=== PATIENT | female | born 1935 | race Caucasian/White ===

== ENCOUNTER 2020-06-27 08:05 | Inpatient (IN) | payer MEDICARE, OTHER ==
[~2020-06-27] VITALS: Ht 162.6 cm; Wt 60.3 kg
[2020-06-27] MEDS ORDERED: ASPIRIN CHEWABLE 81 MG TABLET. PO ONE (08:15)
--- NOTE | 2020-06-27 08:18 | PHYS DOC ---
Past History Past Medical History: Hypertension, Hypothyroid Past Surgical History: Appendectomy, Tonsillectomy Drug Use: None General Adult EDM: Chief Complaint: CHEST PAIN HPI: HPI: Patient is a 84-year-old female who presents with a chief complaint of chest pain. Patient went on a 1 hour walk outside in the cold and then after that began having substernal chest pain described as a fullness and heaviness that is nonradiating and currently gone. Pain lasted 10 minutes. Patient had no associated symptoms such as shortness of breath, nausea, vomiting, dizziness or diaphoresis. Patient denies any factors that make the symptoms better or worse. Patient feels like symptoms may have been brought on by breathing in cold air. Patient denies any recent illnesses such as fever, chills, cough, vomiting, diarrhea or URI symptoms. Review of Systems: Review of Systems: Constitutional: Denies fever or chills Eyes: Denies change in visual acuity HENT: Denies nasal congestion or sore throat Respiratory: Denies cough or shortness of breath Cardiovascular: Complains of chest pain but no edema GI: Denies abdominal pain, nausea, vomiting, bloody stools or diarrhea : Denies dysuria Musculoskeletal: Denies back pain or joint pain Integument: Denies rash Neurologic: Denies headache, focal weakness or sensory changes Endocrine: Denies polyuria or polydipsia Lymphatic: Denies swollen glands Psychiatric: Denies depression or anxiety Current Medications: Current Meds: Current Medications Aspirin (Aspirin Chewable) 324 mg 1X ONCE PO Last administered on 06/27/20at 08:23; Start 06/27/20 at 08:15; Stop 06/27/20 at 08:17; Status DC Allergies: Allergies: Allergies Coded Allergies Type Severity Reaction Last Updated Verified No Known Drug Allergies 06/27/20 No Physical Exam: PE: Constitutional: Well developed, well nourished, no acute distress, non-toxic appearance. [] HENT: Normocephalic, atraumatic, bilateral external ears normal, no trismus nose normal. [] Eyes: PERRLA, EOMI, conjunctiva normal, no discharge. [] Neck: Normal range of motion, no tenderness, supple, no stridor. [] Cardiovascular:Heart rate regular rhythm, peripheral pulses intact cap refill is brisk Lungs & Thorax: Bilateral breath sounds clear, no respiratory distress Abdomen: soft, no tenderness, no masses, no pulsatile masses. [] Skin: Warm, dry, no erythema, no rash. [] Back: No tenderness, no CVA tenderness. [] Extremities: No tenderness, no cyanosis, no clubbing, ROM intact, no edema. [] Neurologic: Alert and oriented X 3, normal motor function, normal sensory f unction, no focal deficits noted. [] Psychologic: Affect normal, judgement normal, mood normal. [] Current Patient Data: Labs: Laboratory Tests Test 06/27/20 09:00 White Blood Count 4.9 x10^3/uL Red Blood Count 4.52 x10^6/uL Hemoglobin 13.9 g/dL Hematocrit 40.7 % Mean Corpuscular Volume 90 fL Mean Corpuscular Hemoglobin 31 pg Mean Corpuscular Hemoglobin Concent 34 g/dL Red Cell Distribution Width 13.0 % Platelet Count 189 x10^3/uL Neutrophils (%) (Auto) 69 % Lymphocytes (%) (Auto) 18 % Monocytes (%) (Auto) 11 % Eosinophils (%) (Auto) 2 % Basophils (%) (Auto) 1 % Neutrophils # (Auto) 3.4 x10^3uL Lymphocytes # (Auto) 0.9 x10^3/uL Monocytes # (Auto) 0.5 x10^3/uL Eosinophils # (Auto) 0.1 x10^3/uL Basophils # (Auto) 0.0 x10^3/uL Sodium Level 128 mmol/L Potassium Level 2.6 mmol/L Chloride Level 87 mmol/L Carbon Dioxide Level 35 mmol/L Anion Gap 6 Blood Urea Nitrogen 14 mg/dL Creatinine 0.5 mg/dL Estimated GFR (Cockcroft-Gault) 118.1 BUN/Creatinine Ratio 28 Glucose Level 95 mg/dL Calcium Level 9.1 mg/dL Magnesium Level 1.9 mg/dL Total Bilirubin 0.6 mg/dL Aspartate Amino Transf (AST/SGOT) 34 U/L Alanine Aminotransferase (ALT/SGPT) 36 U/L Alkaline Phosphatase 103 U/L Troponin I Quantitative < 0.017 ng/mL Total Protein 7.6 g/dL Albumin 4.0 g/dL Albumin/Globulin Ratio 1.1 Lipase 74 U/L Current Medications Medications (Trade) Dose Ordered Sig/Nevaeh Route PRN Reason Start Time Stop Time Status Last Admin Dose Admin Aspirin (Aspirin Chewable) 324 mg 1X ONCE PO 06/27/20 08:15 06/27/20 08:17 DC 06/27/20 08:23 Potassium Chloride (Klor-Con) 40 meq 1X ONCE PO 06/27/20 10:00 06/27/20 10:01 DC 06/27/20 10:09 Ondansetron HCl (Zofran) 4 mg PRN Q4HRS PRN IVP NAUSEA/VOMITING 06/27/20 10:30 06/28/20 10:29 UNV Vital Signs: Vital Signs Date Time Temp Pulse Resp B/P (MAP) Pulse Ox O2 Delivery O2 Flow Rate FiO2 06/27/20 08:23 67 15 210/103 (138) 99 Room Air 06/27/20 08:10 97.4 EKG: EKG: [] EKG interpreted by me normal sinus rhythm with rate of 70 normal axis normal intervals, nonspecific ST changes Radiology/Procedures: Radiology/Procedures: [][place] [address] IMAGING REPORT Signed PATIENT: MARCO WADE ACCOUNT: [id number] : 1935 LOCATION: ER AGE: 84 SEX: F EXAM STATUS: REG ER ORD. PHYSICIAN: RUPESH KAN MD REASON: CHEST PAIN PROCEDURE: PORTABLE CHEST 1V EXAM: PORTABLE CHEST 1V 06/27/2020 8:15 AM CLINICAL INDICATION: Chest pain COMPARISON: CT chest 05/25/2009 TECHNIQUE: AP upright view of the chest FINDINGS: The heart and mediastinum are normal. Lungs are well-expanded and clear. No consolidation, pleural effusion, or pneumothorax. Pulmonary vascularity is normal. The thoracic skeleton is intact. IMPRESSION: No acute cardiopulmonary abnormality. Electronically signed by: Zoila Clay MD (06/27/2020 9:11 AM) [id number] DICTATED AND SIGNED BY: ZOILA CLAY MD DATE: 06/27/20 0911 CC: RUPESH KAN MD; CUONG LUGO MD ~MTH0 0 Heart Score: HEART Score for Chest Pain: HEART Score for Chest Pain Response (Comments) Value History Moderately Suspicious 1 ECG Nonspecific Repolarizatio 1 Age > 65 2 Risk Factors 1 or 2 Risk Factors 1 Troponin < Normal Limit 0 Total 5 Risk Factors: Risk Factors: DM, Current or recent (<one month) smoker, HTN, HLP, family history of CAD, obesity. Risk Scores: Score 0 - 3: 2.5% MACE over next 6 weeks - Discharge Home Score 4 - 6: 20.3% MACE over next 6 weeks - Admit for Clinical Observation Score 7 - 10: 72.7% MACE over next 6 weeks - Early Invasive Strategies Course & Med Decision Making: Course & Med Decision Making Pertinent Labs and Imaging studies reviewed. (See chart for details) [] 84-year-old female presents with chest pain. Patient also has a significant high blood pressure but she took her Procardia prior to arrival. On reassessment her blood pressures in the 150s. Patient has significant hyponatremia and hypokalemia. Patient has a heart score of 5 will need to be admitted for a longer rule out. Patient also has secondary electrolyte disturbances therefore should need to be a full admission to the hospital to monitor and correct electrolytes. Yaima Disclaimer: Yaima Disclaimer: This electronic medical record was generated, in whole or in part, using a voice recognition dictation system. Departure Departure: Impression: Primary Impression: Substernal chest pain Additional Impressions: Accelerated hypertension Hyponatremia Hypokalemia Disposition: ADMITTED INPT THIS HOSP Admitting Physician: Cuong Lugo Condition: STABLE Referrals: CUONG LUGO MD (PCP) RUPESH KAN MD Jun 27, 2020 08:18
--- NOTE | 2020-06-27 09:14 | RAD ---
EXAM: PORTABLE CHEST 1V 06/27/2020 8:15 AM CLINICAL INDICATION: Chest pain COMPARISON: CT chest 05/25/2009 TECHNIQUE: AP upright view of the chest FINDINGS: The heart and mediastinum are normal. Lungs are well-expanded and clear. No consolidation, pleural effusion, or pneumothorax. Pulmonary vascularity is normal. The thoracic skeleton is intact. IMPRESSION: No acute cardiopulmonary abnormality. Electronically signed by: Zoila Clay MD (06/27/2020 9:11 AM) [id number]
[2020-06-27 09:21] LABS: BASO % 1 % (0-3); EOS # 0.1 x10^3/uL (0.0-0.7); EOS % 2 % (0-3); HEMATOCRIT 40.7 % (36.0-47.0); HEMOGLOBIN 13.9 g/dL (12.0-15.5); LYMPH # 0.9 x10^3/uL (1.0-4.8); LYMPH % 18 % (24-48); MEAN CORPUSCULAR HEMOGLOBIN 31 pg (25-35); MEAN CORPUSCULAR HGB CONC 34 g/dL (31-37); MEAN CORPUSCULAR VOLUME 90 fL (79-100); MONO # 0.5 x10^3/uL (0.0-1.1); MONO % 11 % (0-9); NEUT # 3.4 x10^3uL (1.8-7.7); NEUT % 69 % (31-73); PLATELET COUNT 189 x10^3/uL (140-400); RED BLOOD COUNT 4.52 x10^6/uL (3.50-5.40); WHITE BLOOD COUNT 4.9 x10^3/uL (4.0-11.0)
[2020-06-27 09:36] LABS: ALBUMIN/GLOBULIN RATIO 1.1 (1.0-1.7); CALCIUM 9.1 mg/dL (8.5-10.1); CREATININE 0.5 mg/dL (0.6-1.0); GFR 118.1; TOTAL BILIRUBIN 0.6 mg/dL (0.2-1.0); TOTAL PROTEIN 7.6 g/dL (6.4-8.2)
[2020-06-27 09:51] LABS: POTASSIUM 2.6 mmol/L (3.5-5.1)
[2020-06-27] MEDS ORDERED: POTASSIUM CHLORIDE 20 MEQ TABLET.ER. PO ONE ×2 (10:00→15:15)
--- NOTE | 2020-06-27 10:17 | EKG ---
[address] [address] Test Date: 2020-06-27 Test Time: 08:09:49 Pat Name: MARCO WADE Department: Room: Gender: F Dental Associate: : 1935 Requested By: RUPESH KAN Order Number: [id number] Reading MD: Measurements Intervals Arnold Rate: 70 P: 68 TN: 206 QRS: 28 QRSD: 90 T: 12 QT: 402 QTc: 437 Interpretive Statements SINUS RHYTHM NO SPECIFIC ECG ABNORMALITIES RI6.02 No previous ECG available for comparison
[2020-06-27] MEDS ORDERED: ONDANSETRON PF 4 MG/2 ML VIAL. IVP PRN (10:30)
[2020-06-27 12:06] VITALS: BP 141/70
[2020-06-27] MEDS ORDERED: METOPROLOL (12:44)
[2020-06-27] MEDS ORDERED: LEVO75TA PO (12:44)
[2020-06-27] MEDS ORDERED: PROCARDIA (12:45)
[2020-06-27] MEDS ORDERED: OLME40TA12 PO (12:47)
[2020-06-27] MEDS ORDERED: ATOR10TA PO (12:47)
[2020-06-27] MEDS ORDERED: NIFE60TA PO (13:15)
[2020-06-27] MEDS ORDERED: ELECTROLYTE (ICU) PROTOCOL. MC PRN (13:15)
[2020-06-27] MEDS ORDERED: METO25TA4 PO (13:15)
[2020-06-27 14:52] LABS: CALCIUM 8.9 mg/dL (8.5-10.1); CREATININE 0.7 mg/dL (0.6-1.0); GFR 80.1
[2020-06-27 15:03] VITALS: BP 116/66
[2020-06-27] MEDS ORDERED: ZOLPIDEM 5 MG TABLET. PO PRN (19:00)
[2020-06-27 19:15] VITALS: BP 104/58
[2020-06-27] MEDS ORDERED: LOSARTAN 50 MG TABLET. PO SCH (21:00)
[2020-06-27] MEDS ORDERED: METOPROLOL TART IMMED RELEASE 25 MG TABLET. PO SCH (21:00)
[2020-06-27] MEDS ORDERED: POTASSIUM CHLORIDE 20 MEQ TABLET.ER. PO SCH (21:00)
[2020-06-27] MEDS ORDERED: ATORVASTATIN CALCIUM 10 MG TABLET. PO SCH (21:00)
--- NOTE | 2020-06-27 22:07 | HP ---
ADMIT DATE: 06/27/2020 HISTORY OF PRESENT ILLNESS: An 84-year-old female who was out walking this morning in the usual fashion. She began to have chest pain in substernal area radiating to her left shoulder. The patient noted there was a fullness and heaviness and lasted about 10 minutes with no associated symptoms. When she came in through the Emergency Room, however, the patient was noted to have a blood pressure greater than 200 and with that in mind and the fact that the patient has some previous heart history, the patient was admitted to the hospital for further evaluation and treatment thereof. For rule out NM protocol, she met admission protocol for such. The patient also was noted to have a very low potassium of only 2.6 and a sodium of 128. GFR was good, of course, but of course because of this low potassium as well as this elevated chest pain, the patient was admitted to the hospital as well for her urgent hypertension as well. PAST MEDICAL HISTORY: Macular degeneration, tonsillectomy, adenoidectomy, hypertension, abdominal surgery; joint replacement, bilateral knees; hypothyroidism, skin cancer. Influenza and pneumococcal vaccinations are up-to-date. FAMILY HISTORY: Positive for hypertension. ALLERGIES: No known drug allergies. SOCIAL HISTORY: The patient does not smoke or drink and is a full code. REVIEW OF SYSTEMS: Outside of her chest pressure, discomfort radiating to her left shoulder, the patient denied any headaches, visual changes, blurred vision, double vision. Denies any melena, hematochezia, hematemesis and neurologically intact. PHYSICAL EXAMINATION: GENERAL: This is a pleasant white female, in moderate amount of distress. VITAL SIGNS: Blood pressure initially 213/100, respiratory rate 17, pulse 68, afebrile. HEENT: The patient's head was atraumatic, normocephalic. Eyes: PERRLA without jaundice. The mouth and throat were normal. NECK: Supple, without JVD, carotid bruits nor thyroid megaly. ABDOMEN: Soft, nontender, no rebounding or guarding. Positive bowel sounds, no hepatosplenomegaly noted. EXTREMITIES: No clubbing, cyanosis, nor edema. NEUROLOGIC: The patient was alert and oriented x 3. LABORATORY DATA: The patient's white count was 4.9, hemoglobin 13 and 40 and chemistries were already discussed. She had normal BUN and creatinine of 14 and 0.5. IMPRESSION: Chest pain, probable angina, severe hypokalemia, hypertensive urgency, hyponatremia. The patient was admitted to the hospital for further evaluation and treatment for full admission for her hypertensive urgency, her severe chest pain as well as correction of her hypokalemia and hyponatremia as well. JJ LUGO MD DR: YASEMIN/stormy JOB#: [id number] / [id number]
[2020-06-28] MEDS ORDERED: LEVOTHYROXINE 75 MCG TABLET PO SCH (06:00)
[2020-06-28 06:24] LABS: CALCIUM 8.7 mg/dL (8.5-10.1); CREATININE 0.5 mg/dL (0.6-1.0); GFR 118.1; POTASSIUM 4.4 mmol/L (3.5-5.1)
[2020-06-28 07:46] VITALS: BP 146/74
[2020-06-28] MEDS ORDERED: POTA20TA4 PO (08:31)
--- NOTE | 2020-06-29 01:56 | DS ---
DATE OF DISCHARGE: 06/28/2020 HOSPITAL COURSE: The patient came in through the Emergency Room. She was having chest pain with a walk that she normally does in the morning, substernal and to the left chest, left shoulder area. The patient's blood pressure was also elevated with a blood pressure approximately 213/100, pulse was in the 60s, afebrile, good oxygenation. The patient otherwise was admitted, placed on a cardiac workup for rule out NH protocol. The patient made good progress during the rest of her hospitalization. Her blood pressure had come down from that elevation down to approximately 140/70, respiratory rate 18, pulse 63 and afebrile. The patient's cardiac enzymes were negative. Her potassium was also noted to be low at approximately 2.6 and sodium of 128 that varied and sodium came up to 127, BUN and creatinine were 18 and 0.5. Cardiac enzymes were negative. The patient was discharged home for followup. IMPRESSION: Angina. Recommended to follow up with her plant maintenance engineer, Dr. Granados. Hypokalemia, hyponatremia, both adjusted and will continue to be monitored with further workup as an outpatient. Hypertensive urgency of course treated immediately and adjusted on her blood pressure medications and came down into range. Otherwise, the patient made good progress. She will be kept on a heart healthy diet, decreased activity, and follow up with her plant maintenance engineer. JJ LUGO MD DR: YASEMIN/stormy JOB#: [id number] / [id number]
== END 2020-06-28 08:38 | disposition home or self-care (01) | DRG 641 ==
LOC: ER 08:05 → ICU 10:17
PROVIDERS: ADMIT Family Medicine; ATTEND Family Medicine
DX: E87.1 Hypo-osmolality and hyponatremia (principal); I16.0 Hypertensive urgency; E03.9 Hypothyroidism, unspecified; I10 Essential (primary) hypertension; E87.6 Hypokalemia; I20.9 Angina pectoris, unspecified; Z82.49 Family history of ischemic heart disease and other diseases of the circulatory system; Z85.828 Personal history of other malignant neoplasm of skin; Z90.49 Acquired absence of other specified parts of digestive tract; Z96.653 Presence of artificial knee joint, bilateral
CPT/HCPCS: 36415; 71045; 80048; 80053; 83690; 83735; 84484; 85025; 93005; 99285-25